=== PATIENT | female | born 1990 | race Caucasian/White ===

== ENCOUNTER 2020-10-21 08:57 | Emergency (ER) | payer OTHER ==
[2020-10-21] MEDS ORDERED: Sodium Chloride 0.9% 10 ML Syringe FLUSH PRN (09:09)
[2020-10-21] MEDS ORDERED: HYDROmorphone 1 MG/ML Syringe IVPUSH ONE (09:10)
[2020-10-21] MEDS ORDERED: Ondansetron 4 MG/2 ML SDV IVPUSH ONE (09:10)
[2020-10-21] MEDS ORDERED: Sodium Chloride 0.9% 1,000 ML IV SCH (09:15)
--- NOTE | 2020-10-21 09:37 | EDM.PDOC ---
ED HPI GENERAL MEDICAL PROBLEM - General Time Seen by Provider: 10/21/20 09:00 Source of Information: Reports: Patient History Limitations: Reports: No Limitations - History of Present Illness INITIAL COMMENTS - FREE TEXT/NARRATIVE: Pt. presents to ER with complaints of L upper abdominal pain that started at about 7:30 this AM. Pt. had just come in from taking her dog outside. Pt. states that the discomfort was rapid in onset. She states that it is worse when she takes a deep breath, movement, and palpation. Pt. states that her last BM was with AM, and it was normal. She describes it as "crampy". There was no melena or hematochezia. No hematemesis. Pt. vomited once but is no longer nauseated. Denies any flank pain. Pt. is currently at the end of her menses. She is on control. She denies any lower abdominal pain, vaginal discharge, or other mattress spring encaser complaints. Denies any cough, chest congestion, sore throat, rhinorrhea, chest pain, or shortness of breath. Pt. states that she had covid 19 in Apr of last year. Onset: Today Onset Date: 10/21/20 Onset Time: 07:30 Location: Reports: Abdomen Quality: Reports: Sharp, Stabbing Severity: Severe Associated Symptoms: Reports: Nausea/Vomiting. Denies: Confusion, Chest Pain, Cough, Diaphoresis, Fever/Chills, Headaches, Malaise, Rash, Seizure, Shortness of Breath, Syncope, Weakness Left Upper Abdomen Pain Score (Numeric/FACES): 5 - Related Data Allergies Allergy/AdvReac Type Severity Reaction Status Date / Time amoxicillin Allergy Other Verified 10/21/20 09:09 Home Meds: Home Meds Levothyroxine Sodium [Synthroid] 137 mcg PO DAILY 10/21/20 [History] ED ROS GENERAL - Review of Systems Review Of Systems: See Below Constitutional: Reports: No Symptoms. Denies: Fever, Chills, Malaise, Weakness, Fatigue, Night Sweats, Diaphoresis HEENT: Reports: No Symptoms Respiratory: Reports: No Symptoms Cardiovascular: Reports: No Symptoms Endocrine: Reports: Other (Hx. of Graves disease, s/p ablation. On synthroid.) ED EXAM, GENERAL - Physical Exam Exam: See Below Exam Limited By: No Limitations General Appearance: Alert, WD/WN, No Apparent Distress Eye Exam: Bilateral Eye: EOMI, Normal Fundi, Normal Inspection, PERRL, Other (exophthalmos) Nose: Normal Inspection, Normal Mucosa, No Blood Throat/Mouth: Normal Inspection, Normal Lips, Normal Teeth, Normal Gums, Normal Oropharynx, Normal Voice, No Airway Compromise Head: Atraumatic, Normocephalic Neck: Normal Inspection, Supple, Non-Tender, Full Range of Motion Respiratory/Chest: No Respiratory Distress, Lungs Clear, Normal Breath Sounds, No Accessory Muscle Use, Chest Non-Tender Cardiovascular: Normal Peripheral Pulses, Regular Rate, Rhythm, No Edema, No JVD, No Murmur Peripheral Pulses: 4+: Radial (L) GI/Abdominal: Soft, Tender (Point tenderness, L mid to upper quadrant. Pt. tearful. +guarding. Complains of constant pain, worse with even light palpation. Abd. muscles rigid. BS normoactive. ) (Female) Exam: Deferred Rectal (Female) Exam: Deferred Back Exam: Normal Inspection, Full Range of Motion. No: CVA Tenderness (L), CVA Tenderness (R) Extremities: Normal Inspection, Normal Range of Motion, Non-Tender, No Pedal Edema, Normal Capillary Refill Neurological: Alert, Oriented, CN II-XII Intact, Normal Cognition, Normal Gait, Normal Reflexes, No Motor/Sensory Deficits Psychiatric: Normal Affect, Normal Mood Skin Exam: Warm, Intact, No Rash, Pallor, Other (mildly diaphoretic) Lymphatic: No Adenopathy Course - Vital Signs Last Recorded V/S: Last Vital Signs Temp 36.2 C 10/21/20 08:57 Pulse 57 L 10/21/20 08:57 Resp 16 10/21/20 08:57 BP 120/74 10/21/20 08:57 Pulse Ox 99 10/21/20 08:57 - Orders/Labs/Meds Orders: Active Orders 24 hr Category Date Time Status Peripheral IV Insertion Adult [OM.PC] Routine Oth 10/21/20 09:09 Ordered Labs: Laboratory Tests 10/21/20 10/21/20 10/21/20 Range/Units 09:22 09:22 09:22 WBC 9.7 (4.0-10.0) x10^3/uL RBC 4.53 (4.00-5.50) x10^6/uL Hgb 14.6 (12.0-16.0) g/dL Hct 42.3 (33.0-47.0) % MCV 93.4 H (78.0-93.0) fL MCH 32.2 H (26.0-32.0) pg MCHC 34.5 (32.0-36.0) g/dL RDW Coeff of Angela 12.1 (10.0-15.0) % Plt Count 273 (130-400) x10^3/uL Neut % (Auto) 79.6 (50.0-80.0) % Lymph % (Auto) 13.7 L (25.0-50.0) % [place] % (Auto) 4.7 (2.0-11.0) % Eos % (Auto) 1.8 (0.0-4.0) % Baso % (Auto) 0.2 (0.2-1.2) % PT 10.4 (9.9-12.5) SEC INR 0.9 L (2.0-3.5) APTT 21.9 L (25.6-32.8) SEC Sodium 138 (136-145) mmol/L Potassium 3.9 (3.5-5.1) mmol/L Chloride 103 (98-107) mmol/L Carbon Dioxide 26 (21-32) mmol/L Anion Gap 12.9 (5-15) mmol/L BUN 12 (7-18) mg/dL Creatinine 0.9 (0.55-1.02) mg/dL Est Cr Clr Drug Dosing 93.29 mL/min Estimated GFR (MDRD) > 60 Glucose 100 H (70-99) mg/dL Calcium 8.6 (8.5-10.1) mg/dL Corrected Calcium 8.76 (8.5-10.1) mg/dL Magnesium 2.0 (1.8-2.4) mg/dL Total Bilirubin 0.7 (0.2-1.0) mg/dL AST 28 (15-37) U/L ALT 32 (14-59) U/L Alkaline Phosphatase 78 (46-116) U/L C-Reactive Protein < 0.2 (<=0.9) mg/dL Total Protein 8.3 H (6.4-8.2) g/dL Albumin 3.8 (3.4-5.0) g/dL Globulin 4.5 Albumin/Globulin Ratio 0.84 Amylase 79 (25-115) U/L Lipase 84 (73-393) U/L Urine Color (YELLOW) Urine Appearance (CLEAR) Urine pH (5.0-8.0) Ur Specific [place] Urine Protein (NEGATIVE) mg/dL Urine Glucose (UA) (NEGATIVE) mg/dL Urine Ketones (NEGATIVE) mg/dL Urine Occult Blood (NEGATIVE) Urine Nitrite (NEGATIVE) Urine Bilirubin (NEGATIVE) Urine Urobilinogen (0.2) EU/dL Ur Leukocyte Esterase (NEGATIVE) Urine RBC (NOT SEEN) /HPF Urine WBC (NOT SEEN) /HPF Ur Squamous Epith Cells (NOT SEEN) /HPF Urine Bacteria (NOT SEEN) /HPF Urine Mucus (NOT SEEN) /LPF Urine HCG, Qual (NEGATIVE) 10/21/20 10/21/20 Range/Units 10:30 10:30 WBC (4.0-10.0) x10^3/uL RBC (4.00-5.50) x10^6/uL Hgb (12.0-16.0) g/dL Hct (33.0-47.0) % MCV (78.0-93.0) fL MCH (26.0-32.0) pg MCHC (32.0-36.0) g/dL RDW Coeff of Angela (10.0-15.0) % Plt Count (130-400) x10^3/uL Neut % (Auto) (50.0-80.0) % Lymph % (Auto) (25.0-50.0) % [place] % (Auto) (2.0-11.0) % Eos % (Auto) (0.0-4.0) % Baso % (Auto) (0.2-1.2) % PT (9.9-12.5) SEC INR (2.0-3.5) APTT (25.6-32.8) SEC Sodium (136-145) mmol/L Potassium (3.5-5.1) mmol/L Chloride (98-107) mmol/L Carbon Dioxide (21-32) mmol/L Anion Gap (5-15) mmol/L BUN (7-18) mg/dL Creatinine (0.55-1.02) mg/dL Est Cr Clr Drug Dosing mL/min Estimated GFR (MDRD) Glucose (70-99) mg/dL Calcium (8.5-10.1) mg/dL Corrected Calcium (8.5-10.1) mg/dL Magnesium (1.8-2.4) mg/dL Total Bilirubin (0.2-1.0) mg/dL AST (15-37) U/L ALT (14-59) U/L Alkaline Phosphatase (46-116) U/L C-Reactive Protein (<=0.9) mg/dL Total Protein (6.4-8.2) g/dL Albumin (3.4-5.0) g/dL Globulin Albumin/Globulin Ratio Amylase (25-115) U/L Lipase (73-393) U/L Urine Color Dark yellow H (YELLOW) Urine Appearance Clear (CLEAR) Urine pH 5.0 (5.0-8.0) Ur Specific [place] >=1.030 Urine Protein Trace H (NEGATIVE) mg/dL Urine Glucose (UA) Negative (NEGATIVE) mg/dL Urine Ketones Negative (NEGATIVE) mg/dL Urine Occult Blood Moderate H (NEGATIVE) Urine Nitrite Negative (NEGATIVE) Urine Bilirubin Negative (NEGATIVE) Urine Urobilinogen 0.2 (0.2) EU/dL Ur Leukocyte Esterase Negative (NEGATIVE) Urine RBC 0-5 (NOT SEEN) /HPF Urine WBC 0-5 (NOT SEEN) /HPF Ur Squamous Epith Cells Moderate H (NOT SEEN) /HPF Urine Bacteria Few H (NOT SEEN) /HPF Urine Mucus Moderate H (NOT SEEN) /LPF Urine HCG, Qual Negative (NEGATIVE) Meds: Medications Discontinued Medications Generic Name Dose Route Start Last Admin Trade Name Freq PRN Reason Stop Dose Admin Hydromorphone HCl 1 mg 10/21/20 09:10 10/21/20 09:27 Hydromorphone 1 Mg/Ml Syringe IVPUSH 10/21/20 09:11 1 mg ONETIME ONE Administration Sodium Chloride 1,000 mls @ 250 mls/hr 10/21/20 09:15 10/21/20 09:24 Normal Saline IV 250 mls/hr ASDIRECTED LIAN Administration Iopamidol 100 ml 10/21/20 12:06 10/21/20 12:06 Iopamidol 612 Mg/Ml 100 Ml Bottle IVPUSH 10/21/20 12:07 100 ml ONETIME ONE Administration Ondansetron HCl 4 mg 10/21/20 09:10 10/21/20 09:25 Ondansetron 4 Mg/2 Ml Sdv IVPUSH 10/21/20 09:11 4 mg ONETIME ONE Administration Sodium Chloride 10 ml 10/21/20 09:09 Sodium Chloride 0.9% 10 Ml Syringe FLUSH ASDIRECTED PRN Keep Vein Open - Radiology Interpretation Free Text/Narrative:: CT abd pelvis showed probable ruptured follicle with trace fluid in pelvis as well as increased stool burden in colon. Departure - Departure Time of Disposition: 10:30 Disposition: Home, Self-Care 01 Condition: Good Clinical Impression: Constipation, Rupture of follicular cyst of ovary - Discharge Information Instructions: Constipation, Adult, Ovarian Cyst, [id number] Referrals: PCP,None [Primary Care Provider] - Forms: ED Department Discharge Additional Instructions: Home to rest. Off work today and tomorrow if needed. Start miralax 17 gm once daily mixed in large glass of water. Recheck in clinic in 10-14 days, sooner if not gradually improving. Return to ER if you have worsening discomfort or are unable to hold down fluids. Feel free to call if you have any questions. Sepsis Event Note (ED) - Focused Exam Vital Signs: Vital Signs Temp Pulse Resp BP Pulse Ox 10/21/20 08:57 36.2 C 57 L 16 120/74 99 - My Orders Last 24 Hours: My Active Orders 10/21/20 09:09 Peripheral IV Insertion Adult [OM.PC] Routine - Assessment/Plan Last 24 Hours: My Active Orders 10/21/20 09:09 Peripheral IV Insertion Adult [OM.PC] Routine Plan: Home to rest. Off work today and tomorrow if needed. Start miralax 17 gm once daily mixed in large glass of water. Recheck in clinic in 10-14 days, sooner if not gradually improving. Return to ER if you have worsening discomfort or are unable to hold down fluids. Feel free to call if you have any questions.
[2020-10-21 09:46] LABS: PTT,PARTIAL THROMBOPLSTIN TIME 21.9 SEC (25.6-32.8)
[2020-10-21 09:48] LABS: CHLORIDE,CL 103 mmol/L (98-107); SODIUM,NA 138 mmol/L (136-145)
[2020-10-21 09:49] LABS: ANION GAP 12.9 mmol/L (5-15)
[2020-10-21] MEDS ORDERED: Iopamidol 612 MG/ML 100 ML Bottle IVPUSH ONE (12:06)
--- NOTE | 2020-10-21 12:55 | CT ---
[id number] CT/CT Abdomen Pelvis W IV EXAM: ABDOMEN AND PELVIS CT WITH CONTRAST INDICATION: LEFT UPPER QUADRANT ABDOMINAL PAIN. COMPARISON: None. DISCUSSION: 26 mm right and 20 mm left ovarian follicles. Small volume free fluid in the pelvis. Mildly prominent pelvic vessels. Mildly elevated colonic stool volume. The liver, gallbladder, pancreas, spleen, adrenal glands, kidneys, small bowel, and the appendix are normal in appearance. No free air or adenopathy. IMPRESSION: 1. Bilateral ovarian follicles and small volume free fluid in the pelvis. 2. Mildly elevated colonic stool volume. Dhruv Barroso MD 10/21/20 [id number] Thank you for allowing us to participate in the care of your patient.
== END 2020-10-21 13:05 | disposition home or self-care (01) ==
LOC: VM.ED 08:57
CPT/HCPCS: 74177; 80053; 81001; 81025; 82150; 83690; 83735; 85025; 85610; 85730; 86140; 96374; 96375; 99283; 99284; J1170; J2405; J7030; Q9967